=== PATIENT | male | born 1980 | race Caucasian/White ===

== ENCOUNTER 2019-02-16 11:28 | Emergency (ER) | payer SELFPAY ==
[2019-02-16] MEDS ORDERED: CHLORHEXIDINE GLUCONATE 4 % 15 ML UD TOP ONE (11:35)
[2019-02-16] MEDS ORDERED: LIDOCAINE 1% 10 ML VIAL INJ ONE (11:37)
--- NOTE | 2019-02-16 12:16 | ED.PDOC ---
History of Present Illness - General Chief Complaint: Laceration Stated Complaint: laceration to left side of face Time Seen by Provider: 02/16/19 12:13 Source: patient Exam Limitations: no limitations - History of Present Illness Initial Comments: patient comes into a laceration to his left lateral face pain. Patient was working and had a manual crank give way and he hit himself in the side of the head. He had no loss of consciousness, vision change, or emesis. However, his boss was concerned that it would need sutures. The patient states he feels fine and the pain is minimal. He has no altered LOC, no vision change, and no nausea currently as well. He has a past medical history of hypertension but no other past medical history. He has no known drug allergies. His last tetanus shot was 8 years ago. Timing/Duration: momentarily Severity: moderate Improving Factors: nothing Worsening Factors: nothing Associated Symptoms: denies symptoms Allergies/Adverse Reactions: Allergies NO KNOWN ALLERGY Allergy (Verified 02/16/19 11:43) Home Medications: Ambulatory Orders Aspirin [Aspirin EC] 81 mg PO DAILY 02/16/19 Lisinopril [Prinivil] 10 mg PO BEDTIME 02/16/19 Review of Systems - Review of Systems Constitutional: States: no symptoms reported EENTM: States: no symptoms reported Respiratory: States: no symptoms reported Cardiology: States: no symptoms reported Gastrointestinal/Abdominal: States: no symptoms reported Neurological: States: see HPI Past Medical History (General) - Patient Medical History Hx Seizures: No Hx Stroke: No Hx Asthma: No Hx Cardiac Disorders: No Hx Hypertension: Yes Hx Diabetes: No Surgical History: other - Social History Hx Tobacco Use: Yes Family Medical History - Family History Mother Family History: No Known Physical Exam - Physical Exam General Appearance: Alert, No apparent distress Ears, Nose, Throat: hearing grossly normal, normal ENT inspection, normal pharynx Neck: non-tender, full range of motion, supple Respiratory: chest non-tender, lungs clear, normal breath sounds Cardiovascular/Chest: regular rate, rhythm, no murmur Neurologic: brand mgr II-XII nml as tested, no motor/sensory deficits, normal mood/affect, oriented x 3 Skin Exam: other - 2.5 cm full thickness laceration to his left lateral face Procedures - Laceration/Wound Repair Left Face Wound Length (cm): 2.5 Wound's Depth, Shape: superficial Wound Explored: clean Irrigated w/ Saline (cc's): 50 Betadine Prep?: No - Hibicleanses Anesthesia: 1% Lidocaine Volume Anesthetic (cc's): 3 Wound Debrided: minimal Wound Repaired With: sutures Suture Size/Type: 5:0, vicryl rapide Number of Sutures: 5 Layer Closure?: No Departure - Departure Clinical Impression: Laceration Disposition: Discharge to Home or Self Care Condition: Fair Departure Forms: ED Discharge - Pt. Copy, Patient Portal Self Enrollment Referrals: CECIL SAUCEDO [Primary Care Provider] - 1-2 Weeks Home Medications: Ambulatory Orders Aspirin [Aspirin EC] 81 mg PO DAILY 02/16/19 Lisinopril [Prinivil] 10 mg PO BEDTIME 02/16/19 Additional Instructions: follow-up in 5-7 days for suture removal. Keep area clean with warm soapy water pat dry. Do not soak sutures. Return to ER or clinic for increased temperature greater than 100.5, swelling or redness at the wound. Return to ER for altered LOC, vision change, emesis.
[2019-02-16] MEDS ORDERED: NEOMYCIN-BACITRACIN-POLYMYXIN 0.9 GM UD TOP ONE (12:23)
[2019-02-16 12:32] VITALS: BP 117/76; TEMP 98.8; O2SAT 95
== END 2019-02-16 12:32 | disposition home or self-care (01) ==
LOC: ER 11:28
DX: S01.81XA Laceration without foreign body of other part of head, initial encounter (principal); I10 Essential (primary) hypertension; W45.8XXA Other foreign body or object entering through skin, initial encounter; Y99.0 Civilian activity done for income or pay; Y92.69 Other specified industrial and construction area as the place of occurrence of the external cause; Z87.891 Personal history of nicotine dependence; Z79.82 Long term (current) use of aspirin